=== PATIENT | male | born 1930 | race Caucasian/White ===

== ENCOUNTER → 2017-12-29 | Outpatient (CLI) | payer MEDICARE, OTHER ==
[~2017-12-29] MED LIST: ASPI-496 PO; CAPT100T2 PO; CHOL100014 PO; DIGO250T PO; INSU100I28 SQ-INSULIN; LEUP45SY3 INJ; LIDOCAINE-MPF 1%, 5ML ONE; METO50TA82 PO; MULT-717 PO; POTA99TA14 PO; PRAV20TA2 PO
== END | disposition home or self-care (01) ==
LOC: RAD 11:12
PROVIDERS: ATTEND Otolaryngology
DX: C07 Malignant neoplasm of parotid gland (principal)
CPT/HCPCS: 10022; 76536; 76942; 88173